=== PATIENT | female | born 1955 | race Caucasian/White ===

== ENCOUNTER 2024-02-23 11:35 | Outpatient (POV) | payer MEDICARE, SELFPAY ==
--- OUTSIDE RECORDS SUMMARY | 2024-02-23 11:46 | XMS_ITS | Data Portability ---
Author Organization [facility] Address [address] [place] [address] Care Team Providers Care Date Night Caregiver Name Role Phone SENTHIL SAAB Primary Care Provider BRAXTON HINOJOSA Referring Provider Assessment Encounter Date Assessment Date Assessment LastModified by Organization Details LastModified Time 04/14/2021 04/14/2021 Brief Pain History: This is a former Dr. Hinojosa patient 65-year-old female new patient referral for chronic low back pain. She reports the pain started on 1969 without cause. Has been slowly progressive over the years. Recently has been under the care of pain management getting treatment with medication management mainly. States that she has been seeing Dr. Hinojosa's group for a number of years getting Percocet and gabapentin. She denies any type of injection therapy for her lumbar spine. States physical therapy previously has not been helpful. She is not a surgical candidate. That office no longer able to prescribe so she has been referred on to our office. Sx: She reports pain across low back with some referred to hips bilaterally. States the pain is a constant aching aggravated with activity including standing, walking, bending, lifting, pushing, pulling. Worse with cold weather and damp weather. Denies any type radicular pain. No numbness or weakness the legs. No bowel or bladder incontinence. Pertinent Imaging: XR LUMBAR SPINE AP AND LATERAL August 2020: No evidence of significant degenerative disc disease fracture or dislocation or malalignment. PROCEDURE: MRI LUMBAR SPINE, WITHOUT CONTRAST, 11/06/2015: L1-2: Negative interspace. L2-3: Mild disc degeneration and desiccation with mild posterior disc bulging eccentric to the left. No central canal stenosis. Right lateral recess and right neural foramina widely patent. There is moderate narrowing of the left lateral recess and minimal narrowing of the left neural foramen. L3-4: Negative interspace. Bilateral facet hypertrophy. L4-5: Mild posterior disc bulging eccentric to the left. Bilateral facet hypertrophy. No central canal stenosis. There is mild narrowing of the right lateral recess. There is moderate to advanced narrowing left lateral recess. Moderate narrowing of the left neural foramen. Right neural foramen is widely patent. L5-S1: Mild posterior disc bulging of doubtful architectural significance. Bilateral facet hypertrophy. OTHER TREATMENTS: Conservative: 6 weeks physical therapy previously [facility] 2019 without relief Surgical: None RISK FACTORS: Smoker: Yes Employed: No Diabetic: Denies Anticoagulated: Denies Injection Hx Denies lumbar injections Medication Hx: Percocet 10/325 mg 1 4 times a day. Gabapentin 600 mg 1 4 times a day Compliance: TAMAR/OARS/INSPE CT was reviewed and is appropriate Preliminary UDS today is as expected I will send this for LCMS confirmation for a baseline since the patient is new to the practice. Based on above screening, co-morbidities, MED, and my clinical judgement: I consider this patient to be moderate risk for abuse/diversion. ORT: 1 PHQ-9: 0 MDM: Reviewed imaging with the patient we discussed treatment options. Imaging shows significant amount facet arthritis. Her pain is all axial. We discussed injection therapy and she is agreeable to this. History and exam are consistent with low back pain from facet arthritis, supported by imaging. Symptoms have not responded to >3 months conservative therapy including but not limited to physical therapy. Symptoms are affecting patient's ability to perform ADLs. I am going to schedule the patient for a bilateral diagnostic lumbar medial nerve branch block L3-5 x2 to be followed by radiofrequency ablation as appropriate. I will take over her Percocet gabapentin at the current dose and frequency. No increase on the Percocet. PLAN: 1. Medications as above. 2. Order placed for lumbar medial branch block L3 to 5x2 to be followed by lumbar radiofrequency ablation as appropriate. Discussed new orders/changes with patient. Patient expressed agreement and full understanding of above plan. All questions answered in full. Follow-up in 30 days. Much of this encounter is an electronic ending machine operator/tra nslation of spoken language to printed text. The electronic translation of spoken language may permit erroneous or at times nonsensical words of phrases to be inadvertently transcribed; Although I have reviewed the note for such errors, some may still exist. [email or web address] Not available 04/14/2021 09:18:54 05/20/2021 05/20/2021 65-year-old female follow-up for chronic low back pain. Since last appointment she reports symptoms are about the same as last time she was in the office. She has been doing well with medications. Medications help keep her functional and active. Denies any side effects or issues on medication. We discussed medial nerve branch block at last appointment and she like to move forward with scheduling. Looks like we have approval for the procedure we just need to get her on the schedule. She reports pain across low back with some referred to hips bilaterally. States the pain is a constant aching aggravated with activity including standing, walking, bending, lifting, pushing, pulling. Worse with cold weather and damp weather. Denies any type radicular pain. No numbness or weakness the legs. No bowel or bladder incontinence. Brief Pain History: This is a former Dr. Hinojosa patient 65-year-old female new patient referral for chronic low back pain. She reports the pain started on 1969 without cause. Has been slowly progressive over the years. Recently has been under the care of pain management getting treatment with medication management mainly. States that she has been seeing Dr. Hinojosa's group for a number of years getting Percocet and gabapentin. She denies any type of injection therapy for her lumbar spine. States physical therapy previously has not been helpful. She is not a surgical candidate. That office no longer able to prescribe so she has been referred on to our office. Pertinent Imaging: XR LUMBAR SPINE AP AND LATERAL August 2020: No evidence of significant degenerative disc disease fracture or dislocation or malalignment. PROCEDURE: MRI LUMBAR SPINE, WITHOUT CONTRAST, 11/06/2015: L1-2: Negative interspace. L2-3: Mild disc degeneration and desiccation with mild posterior disc bulging eccentric to the left. No central canal stenosis. Right lateral recess and right neural foramina widely patent. There is moderate narrowing of the left lateral recess and minimal narrowing of the left neural foramen. L3-4: Negative interspace. Bilateral facet hypertrophy. L4-5: Mild posterior disc bulging eccentric to the left. Bilateral facet hypertrophy. No central canal stenosis. There is mild narrowing of the right lateral recess. There is moderate to advanced narrowing left lateral recess. Moderate narrowing of the left neural foramen. Right neural foramen is widely patent. L5-S1: Mild posterior disc bulging of doubtful architectural significance. Bilateral facet hypertrophy. OTHER TREATMENTS: Conservative: 6 weeks physical therapy previously [facility] 2019 without relief Surgical: None RISK FACTORS: Smoker: Yes Employed: No Diabetic: Denies Anticoagulated: Denies Injection Hx Denies lumbar injections Medication Hx: Percocet 10/325 mg 1 4 times a day. Gabapentin 600 mg 1 4 times a day Compliance: The patient was advised that the purpose of this urine drug screen is to monitor for compliance and to assist in risk stratification. TAMAR/OARS/INSPE CT was reviewed and is appropriate Preliminary UDS today is appropriate. The results of this preliminary screening test were discussed with the patient. I will send this for LCMS confirmation Last UDS confirmation was April 2021 and appropriate Based on the patients urine confirmation (LCMS) results, the patient's overall risk level will remain the same. I would consider the patient to be moderate risk based on these new results. In response to the patient's risk level and urine confirmation I plan to continue the patient's opioid prescription. ORT: 1 PHQ-9: 0 MDM: We will schedule for her lumbar medial branch block today. In the meantime continue medication at the current dose and frequency. PLAN: 1. Medications as above. 2. Order placed for lumbar medial branch block L3 to 5x2 to be followed by lumbar radiofrequency ablation as appropriate. Discussed new orders/changes with patient. Patient expressed agreement and full understanding of above plan. All questions answered in full. Follow-up in 30 days. Much of this encounter is an electronic ending machine operator/tra nslation of spoken language to printed text. The electronic translation of spoken language may permit erroneous or at times nonsensical words of phrases to be inadvertently transcribed; Although I have reviewed the note for such errors, some may still exist. [email or web address] Not available 05/20/2021 14:48:10 Plan of Treatment Reminders Order Date Submit Date Provider Last Modified By Organization Details Last Modified Time Details Appointments None recorded. Lab drug screen, urine 2021 022 [email or web address] [place], [address] [place] [address] [address], [address] [place], [address], 2 09:13:40 unlisted lab - confirm new patient 2021 [facility], [facility], [address] [place] [address], [address], 2 12:01:18 drug screen, urine 2021 [place], [address], [address], [place], [address], 2 14:45:25 unlisted lab - confirm appropriate oxycodone 2021 [email or web address] [facility], [facility], [address] [place] [address], [address], 08:49:39 Referral None recorded. Procedures medial branch block, lumbar (PROC) - bilateral lumbar mnbb L3-5 2021 [email or web address] Not available 22:13:07 Surgeries None recorded. Imaging None recorded. Medication Orders gabapentin 600 mg tablet [address] [id number], [address] [place], [address], 16:18:38 Percocet 10 mg-325 mg tablet [address] [facility] [id number], [address] [place], [address], 2 16:18:38 gabapentin 600 mg tablet 2021 [facility] [id number], [address] [place], [address], 2 14:45:31 Percocet 10 mg-325 mg tablet 2021 022 [facility] [id number], [address] [place], [address], 14:45:34 Patient TargetsNo targets recorded. Patient Instructions Encounter Date Encounter Id Patient Instructions Last Modified By Organization Details Last Modified Time 04/14/2021 [id number] Much of this encounter is an electronic ending machine operator/roman slation of spoken language to printed text. The electronic translation of spoken language may permit erroneous or at times nonsensical words of phrases to be inadvertently transcribed; Although I have reviewed the note for such errors, some may still exist. [email or web address] Not available 04/14/2021 08:51:09 Reason for Referral None Reported. Results Created Date Observation Date Name Description Value Unit Range Abnormal Flag Note LastModifiedBy Organization Detail LastModifiedTime 04/14/1904/14/2021 drug scree n, urine THC: negati ve Not Available [place] [address], [place], [address], 04/14/2021 08:49:41 04/14/19 22 04/14/2021 drug scree n, urine Buprenorphin e: negati ve Not Available [place] [address], [place], [address], 04/14/2021 08:49:41 04/14/19 22 04/14/2021 drug scree n, urine TCA: positi ve Not Available [place] [address], [place], [address], 04/14/2021 08:49:41 04/14/19 22 04/14/2021 drug scree n, urine Barbiturates : negati ve Not Available [place] [address], [place], [address], 04/14/2021 08:49:41 04/14/19 22 04/14/2021 drug scree n, urine Benzodiazepi mary ann: negati ve Not Available [place] [address], [place], [address], 04/14/2021 08:49:41 04/14/19 22 04/14/2021 drug scree n, urine Methadone: negati ve Not Available [place] [address], [place], [address], 04/14/2021 08:49:41 04/14/19 22 04/14/2021 drug scree n, urine Amphetamines : negati ve Not Available [place] [address], [place], [address], 04/14/2021 08:49:41 04/14/19 22 04/14/2021 drug scree n, urine Morphine/Opi ates: negati ve Not Available [place] [address], [place], [address], 04/14/2021 08:49:41 04/14/19 22 04/14/2021 drug scree n, urine Oxycodone: positi ve Not Available [place] [address], [place], [address], 04/14/2021 08:49:41 04/14/19 22 04/14/2021 drug scree n, urine MDMA: negati ve Not Available [place] [address], [place], [address], 04/14/2021 08:49:41 04/14/19 22 04/14/2021 drug scree n, urine Cocaine: negati ve Not Available [place] [address], [place], [address], 04/14/2021 08:49:41 04/14/19 22 04/14/2021 drug scree n, urine Methamphetam ine: negati ve Not Available [place] [address], [place], [address], 04/14/2021 08:49:41 05/21/19 22 05/20/2021 drug scree n, urine THC: negati ve Not Available [place] [address], [place], [address], 05/20/2021 14:06:28 05/21/19 22 05/20/2021 drug scree n, urine Buprenorphin e: negati ve Not Available [place] [address], [place], [address], 05/20/2021 14:06:28 05/21/19 22 05/20/2021 drug scree n, urine TCA: positi ve Not Available [place] [address], [place], [address], 05/20/2021 14:06:28 05/21/19 22 05/20/2021 drug scree n, urine Barbiturates : negati ve Not Available [place] [address], [place], [address], 05/20/2021 14:06:28 05/21/19 22 05/20/2021 drug scree n, urine Benzodiazepi mary ann: negati ve Not Available [place] [address], [place], [address], 05/20/2021 14:06:28 05/21/19 22 05/20/2021 drug scree n, urine Methadone: negati ve Not Available [place] [address], [place], [address], 05/20/2021 14:06:28 05/21/19 22 05/20/2021 drug scree n, urine Amphetamines : negati ve Not Available [place] [address], [place], [address], 05/20/2021 14:06:28 05/21/19 22 05/20/2021 drug scree n, urine Morphine/Opi ates: negati ve Not Available [place] [address], [place], [address], 05/20/2021 14:06:28 05/21/19 22 05/20/2021 drug scree n, urine Oxycodone: positi ve Not Available [place] [address], [place], [address], 05/20/2021 14:06:28 05/21/19 22 05/20/2021 drug scree n, urine MDMA: negati ve Not Available [place] [address], [place], [address], 05/20/2021 14:06:28 05/21/19 22 05/20/2021 drug scree n, urine Cocaine: negati ve Not Available [place] [address], [place], [address], 05/20/2021 14:06:28 05/21/19 22 05/20/2021 drug scree n, urine Methamphetam ine: negati ve Not Available [place] [address], [place], [address], 05/20/2021 14:06:28 03/24/19 22 09/16/2020 XR, lumba r spine No observ ation record ed. BARCODE Not Available 2021 16:51:05 03/24/19 22 09/16/2020 XR, thora cic spine No observ ation record ed. BARCODE Not Available 2021 16:51:05 Result Notes None recorded. Problems Name Problem SNOMED Code Status Onset Date Resolution Date Notes Provider Name and Address Organization Details Recorded Time Lumbar spondylosis 519315992 Active 2021 Braxton Abel MD [address] [place] [address], [address] , [facility] 2 09:05:31 Degeneration of cervical intervertebra l disc 00531724 Active 2021 Braxton Abel MD [address] [place] [address], [address] , [facility] 2 09:06:27 Problem Notes None recorded. Procedures Surgical History Date Name Laterality Status Provider Name and Address Organization Details Recorded Time Orthopedic Surgery completed Estefanía Dailey [facility] 04/14/2021 08:56:35 Imaging Results Imaging Date Name Status LastModified by Organiz ation Details LastModified Time 09/16/2020 XR, lumbar spine completed BARCODE Information not available 03/24/2021 16:51:05 09/16/2020 XR, thoracic spine completed BARCODE Information not available 03/24/2021 16:51:05 Procedure Notes None recorded. Medical Equipment None Reported. Allergies Allergen ID Allergen Name Allergen Category Reaction Reaction Severity Criticality Documentation Date Start Date Code Code System Note Provider Name and Address Organization Details Recorded Time 579261 codeine medicatio n Not available Not available Not available 04/14/2021 2670 RxNorm Estefanía Dailey [facility] 2 08:51:50 858481 morphine medicatio n Not available Not available Not available 04/14/2021 7052 RxNorm Estefanía Dailey [facility] 2 08:51:56 193906 hydrocodo ne Not available Not available Not available Not available 04/14/2021 5489 RxNorm Estefanía Dailey [facility] 2 08:52:04 Medications Name Sig Start Date Stop Date Status Note LastModified by Organization Details LastModified Time atorvastatin 40 mg tablet active Not Available Not Available Not Available bupropion HCl SR 150 mg tablet,12 hr sustained-rel ease active Not Available Not Available Not Available gabapentin 600 mg tablet Take 1 tablet 4 times a day by oral route. active Not Available Not Available No t Available bisoprolol 5 mg-hydrochlor othiazide 6.25 mg tablet active Not Available Not Available Not Available amlodipine 2.5 mg tablet active Not Available Not Availabl e Not Available clopidogrel 75 mg tablet 04/14 completed Not Available Not Available Not Available amlodipine 5 mg tablet 04/14 completed Not Available Not Available Not Available amoxicillin 875 mg tablet 04/14 completed Not Available Not Available Not Available oxycodone-simona taminophen 10 mg-325 mg tablet Take 1 tablet 4 times a day by oral route. active Not Available Not Available No t Available aspirin 81 mg chewable tablet 04/14 completed Not Available Not Available Not Available hydrochloroth iazide 25 mg tablet active Not Available Not Available Not Available ergocalcifero l (vitamin D2) 1,250 mcg (50,000 unit) capsule active Not Available Not Available Not Available loratadine 10 mg tablet active Not Available Not Available No t Available Chantix 1 mg tablet 04/14 completed Not Available Not Available Not Available ProAir HFA 90 mcg/actuation aerosol inhaler active Not Available Not Available Not Available Chantix Starting Month Box 0.5 mg (11)-1 mg (42) tablets in dose pack 04/14 completed Not Available Not Available Not Available Anoro Ellipta 62.5 mcg-25 mcg/actuation powder for inhalation active Not Available Not Available N ot Available Vitals Date Recorded Body height Body mass index (BMI) Body weight Provider Name and Address Organization Details Last Updated DateTime 04/14/2021 162.56 cm 25.1 kg/m2 96486.49 g Estefanía [facility] 04/14/2021 08:51:28 Date Recorded Body height Provider Name an d Address Organization Details Last Updated DateTime 05/20/2021 162.56 cm Estefanía Dailey [facility] 05/20/2021 14:23:04 Social History Question Answer Notes LastModified by Organizat ion Details LastModified Time Tobacco Smoking Status Current Every Day Smoker Estefanía osuna [facility] 04/14/2021 08:55:58 What Is Your Level Of Alcohol Consumption? Occasional Information not available 04/14/2021 How Many Times Per Week Do You Consume Alcohol? 1-2 Times Per Week Information not available 04/14/2021 In The 14 Days Before Symptom Onset, Have You Had Close Contact With A Laboratory-confir med COVID-19 While That Case Was Ill? No Information not available 04/14/2021 In The 14 Days Before Symptom Onset, Have You Had Close Contact With A Person Who Is Under Investigation For COVID-19 While That Person Was Ill? No Information not available 04/14/2021 What Type Of Diet Are You Following? REGULAR Information not available 04/14/2021 What Is The Highest Grade Or Level Of School You Have Completed Or The Highest Degree You Have Received? GR17676-3 Information not available 04/14/2021 How Many Times Per Week Do You Exercise? 1-2 Times Per Week Information not available 04/14/2021 What Is Your Relationship Status? Information not available 04/14/2021 How Much Tobacco Do You Smoke? 2 PPD Information not available 04/14/2021 Do You Use Any Illicit Or Recreational Drugs? No Information not available 04/14/2021 How Many Years Have You Smoked Tobacco? 50 Information not available 04/14/2021 Sex: Unknown Functional Status Question Answer Note LastModified by Organization D etails LastModified Time Are you able to walk? YESWOREST Information not available 04/14/2021 What is your exercise level? Moderate Information not available 04/14/2021 Mental Status None recorded. Family History Relationship Description Onset Age of this Age Resolved Age Notes LastModified by Organization Details LastModified Time Father No current problems or disability [email or web address] Not available 04/14 08:54:40 Mother No current problems or disability [email or web address] Not available 04/14 08:54:40 Medical History Condition Response Bipolar Disease N Coronary Artery Disease N Gout N Seizure Disorder N Thyroid Disease N Atrial Fibrillation N Hernia N Head Trauma/Injury N COPD N Depression N Anxiety Disorder N Acid Reflux (GERD) N Cancer N Skin Disorder N Stroke N High Cholesterol Y Liver Disease N Rheumatoid Arthritis N Fibromyalgia N Headaches N Autoimmune Disease N Kidney Disease N Osteoarthritis N Neurosurgery N DVT N Peptic Ulcer Disease N Anemia N Heart Attack (SD) N Diabetes N Cardiomyopathy N Bleeding Disorder N CHF N AIDS/HIV N Inflammatory Bowel Disease N Dementia N Asthma Y Substance Abuse N Sleep Apnea N Hepatitis N Heart Disease N Pulmonary Embolism N Chronic Low Back Pain Y Hypertension Y Osteoporosis N Gynecological HistoryNo gynecological history recorded. Obstetrics History GPAL:G 0 P 0 0 0 0 Past Encounters Encounter ID Performer Location Encounter Start Date Encounter Closed Date Diagnosis/Indication Diagnosis SNOMED-CT Code Diagnosis ICD10 Code [id number] Braxton Abel MD [place] [address] [place] [address] 04/14/2021 08:40:19 04/14/2021 09:15:06 Long-term drug therapy 751796357 Z79.899 Lumbar spondylosis 48102 0009 M47.816 Degenerati on of cervical intervertebral disc 97889055 M50.30 [id number] Braxton Abel MD [place] [address] [address] 05/20/2021 14:05:06 05/20/2021 14:46:10 Long-term drug therapy 711447887 Z79.899 Lumbar spondylosis 17173 0009 M47.816 Degenerati on of cervical intervertebral disc 88118855 M50.30 Health Concerns Section Related Observation LastModified by Organization Detai ls LastModified Time None Recorded Concern Status LastModified by Organization Details LastModified Time None Recorded Advance Directives Directive None Recorded Payers Encounter Date Sequence Insurance Name Policy Number Policy [employer] Covered Member ID [place]rickson Member ID Guarantor Name 04/14/2021 1 [facility] (MEDICAID REPLACEMENT - HMO) Vickie Riddle [id number] Vickie Riddle 05/20/2021 1 [facility] (MEDICAID REPLACEMENT - HMO) Vickie Riddle [id number] Vickie Riddle Notes Date Note Type Note Provider Name and Address Organization Details Recorded Time 04/14/2021 text/html Low back painReported bypatient.Onset:da te of onset: (1967) Location:bilateral paraspinal (L>R); pain is not radiating Context:overuse Quality:aching; burning Severity:current pain level: 7/10; average pain level: 7/10; worst pain level: 10/10 Alleviating Factors:lying down; ice Aggravating Factors:walking; lifting; carrying; twisting; pushing/pulling; cold weather; damp weather Timing:varies throughout the day Associated Symptoms:no numbness; no tingling; no pain radiating down lower extremities; no swelling; no popping/clicking; no bowel incontinence; no urinary retention; no urinary incontinence; no perineal paresthesia/anesth esia Prior Imaging:x-ray (08/2020) Previous Lumbar Surgery:none Previous Injections:none Previous physical therapy:Facility: ([facility]); currently in PT:; completed all recommended PT visits; more than 6weeks of PT completed; dates:; response to therapy: no improvement in pain/symptoms Daily Activities:Living independently.; Able to bathe/groom without assistance.;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 Medications History:Muscle relaxants: (FLEXERIL-NOT HELPFUL); Neuropathics: (GABAPENTIN-HELPFU L); Opioid pain medications: (PERCOCET-HELPFUL HYDROCODONE-ALLERG IC) Prior Pain Management:yes: () Braxton Abel MD [address] [place] [address], [phone] 04/14/2021 09:20:02 05/20/2021 text/html Follow-up (meds & injections)Reporte d bypatient.Improvem ent:Pain is the same as compared to last visit. Pain Scores:Average pain- 5/10; Current pain- 7/10; Worst pain- 10/10 Current Analgesics:Opioids - oxycodone; Other adjunct medications- gabapentin; Reported pain relief- 90% for 8 hours; last dose taken at 130pm Adverse Reactions:No nausea.; No vomiting.; No constipation.; No itching.; No sedation.; No respiratory depression.; No sexual dysfunction. Activities of Daily Living (ADL):Living independently.; Able to bathe/groom without assistance.; Able to complete funeral service practitioner/embalmer.; Walking without assistance.; Working.; Exercising.Low back painReported bypatient.Onset:da te of onset: (1969) Location:bilateral paraspinal (L>R); pain is not radiating Context:overuse Quality:aching; burning Severity:current pain level: 7/10; average pain level: 7/10; worst pain level: 10/10 Alleviating Factors:lying down; ice Aggravating Factors:walking; lifting; carrying; twisting; pushing/pulling; cold weather; damp weather Timing:varies throughout the day Associated Symptoms:no numbness; no tingling; no pain radiating down lower extremities; no swelling; no popping/clicking; no bowel incontinence; no urinary retention; no urinary incontinence; no perineal paresthesia/anesth esia Prior Imaging:x-ray (08/2020) Previous Lumbar Surgery:none Previous Injections:none Previous physical therapy:Facility: ([facility]); currently in PT:; completed all recommended PT visits; more than 6weeks of PT completed; dates:; response to therapy: no improvement in pain/symptoms Daily Activities:Living independently.; Able to bathe/groom without assistance.;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 Medications History:Muscle relaxants: (FLEXERIL-NOT HELPFUL); Neuropathics: (GABAPENTIN-HELPFU L); Opioid pain medications: (PERCOCET-HELPFUL HYDROCODONE-ALLERG IC) Prior Pain Management:yes: () Braxton Abel MD [address] [place] [address], [phone], [facility] 05/20/2021 14:48:45 OBGyn Episode No OBEpisode recorded.
--- OUTSIDE RECORDS SUMMARY | 2024-02-23 11:46 | XMS_ITS | Data Portability ---
Author Organization [place] - [facility] [place] & SESAR Babin ADMIN Address [address] [place] [phone] Assessment Encounter Date Assessment Date Assessment LastModified by Organization Details LastModified Time 11/12/2022 11/12/2022 This is a very pleasant patient, referred by Dr. Bah, with complaints of Neck,back hip and hand pain for 20+ years. She is been oxycodone /APAP 10/325 q.6 hours and gabapentin 600 mg q.6 hours As prescribed by Dr. Bah. She has had prior SI injection with short-term relief. patient was discharged from Dr. Hardin's office secondary to UDS discrepancy. Based on history and physical exam, the patient's pain is multifactorial in nature. I think her pain is secondary to sacroiliitis, lumbar and cervical pathology as well as myofascial pain. We discuss further treatment including repeat SI injection as she has had in the past and getting a new imaging for further evaluation to help determine further treatment. I had a detailed discussion with the patient regarding treatment modalities and the respective risks/benefits. I educated the patient on the dangers/risks of long-term oral opioids, particularly with increasing age, these risks include respiratory depression, not excluding . I informed the patient that the goal of [facility] will be to incorporate a multi-modal approach to pain management, which may consist of conservative, pharmacologic, and interventional approaches, ultimately decreasing pain and increasing function with focus on both safety and efficacy. I informed the patient that I will prescribe oral opioids, but at a lower dose, and the intention will be to slowly taper once pain is better controlled. The patient verbalized understanding. We discussed the signficant impact smoking can have on a patient's health and co-morbidities . We discussed all the well known increased risks including risk of ND, CVA, vascular disease various cancers and early . There is literature to support that smoking worsens and intensifies chronic pain. I encouraged the patient to aggressively work on smoking cessation. At this time, patient is not interested in pursuing any interventions and is not interested in tapering her medications. She will return to see us if she changes her mind after considering her options. gloria Not available 11/13/2022 13:42:41 Plan of Treatment Reminders Order Date Submit Date Provider Last Modified By Organization Details Last Modified Time Details Appointments None record ed. Lab None record ed. Referral None record ed. Procedures None record ed. Surgeries None record ed. Imaging None record ed. Medication Orders None record ed. Patient TargetsNo targets recorded. Patient InstructionsNo instructions recorded. Reason for Referral None Reported. Medical Equipment None Reported. Allergies No known drug allergies Medications Name Sig Start Date Stop Date Status Note LastModified by Organization Details LastModified Time atorvastatin 40 mg tablet 11/12 completed Not Available Not Available Not Available silver sulfadiazine 1 % topical cream 11/12 completed Not Available Not Available Not Available prednisone 10 mg tablet 11/12 completed Not Available Not Available Not Available gabapentin 600 mg tablet active Not Available Not Available No t Available ipratropium 0.5 mg-albuterol 3 mg (2.5 mg base)/3 mL nebulization soln 11/12 completed Not Available Not Available Not Available loperamide 2 mg capsule 11/12 completed Not Available Not Available Not Available cetirizine 10 mg tablet 11/12 completed Not Available Not Available Not Available azithromycin 250 mg tablet 11/12 completed Not Available Not Available Not Available prednisone 20 mg tablet 11/12 completed Not Available Not Available Not Available bisoprolol 5 mg-hydrochloroth iazide 6.25 mg tablet 11/12 completed Not Available Not Available Not Available oxycodone-acetam inophen 10 mg-325 mg tablet active Not Available Not Avail able Not Available benzonatate 100 mg capsule 11/12 completed Not Available Not Available Not Available cephalexin 500 mg capsule 11/12 completed Not Available Not Available Not Available montelukast 10 mg tablet 11/12 completed Not Available Not Available Not Available hydroxyzine HCl 25 mg tablet 11/12 completed Not Available Not Available Not Available furosemide 20 mg tablet 11/12 completed Not Available Not Available Not Available levofloxacin 500 mg tablet 11/12 completed Not Available Not Available Not Available ondansetron 4 mg disintegrating tablet 11/12 completed Not Available Not Available Not Available fluticasone propionate 50 mcg/actuation nasal spray,suspension 11/12 completed Not Available Not Available Not Available Flovent HFA 220 mcg/actuation aerosol inhaler 11/12 completed Not Available Not Available Not Available Asmanex Twisthaler 220 mcg/actuation(30 doses) breath activated inhalr 11/12 completed Not Available Not Available Not Available ProAir HFA 90 mcg/actuation aerosol inhaler 11/12 completed Not Available Not Available Not Available Anoro Ellipta 62.5 mcg-25 mcg/actuation powder for inhalation 11/12 completed Not Available Not Available Not Available Paxlovid 300 mg (150 mg x 2)-100 mg tablets in a dose pack 11/12 completed Not Available Not Available Not Available Vitals Date Recorded Body weight Body mass index (BMI) Body height Body temperature Oxygen saturation Oxygen saturation in Arterial blood by Pulse oximetry Heart rate Systolic blood pressure Diastolic blood pressure Provider Name and Address Organization Details Last Updated DateTime 3 80968.7 1 g 24.5 kg/m2 162.56 cm 97.1 [degF] 93 % 93 % 82 /min 179 mm[Hg] 84 mm[Hg] Winnie Ventura [facility] [place] 09:30:10 Social History Question Answer Notes LastModified by Organizat ion Details LastModified Time Tobacco Smoking Status Current Every Day Smoker Winnie Ventura [facility], [facility] & [place] 11/12/2022 09:37:00 What Is Your Current Pack Years? 30ormorepacky ears [id number] Information not available 11/12/2022 How Much Tobacco Do You Smoke? 0.5 PPD Information not available 11/12/2022 Sex: Unknown Functional Status None recorded. Mental Status None recorded. Family History Nothing Reported. Medical History Condition Response Arthritis Y Hypertension Y High Cholesterol Y Gynecological HistoryNo gynecological history recorded. Obstetrics History GPAL:G 0 P 0 0 0 0 Past Encounters Encounter ID Performer Location Encounter Start Date Encounter Closed Date Diagnosis/Indication Diagnosis SNOMED-CT Code Diagnosis ICD10 Code [id number] Javad Vang MD [facility] [address],[facility] e [address] [place] [phone] 11/12/2022 09:11:40 11/12/2022 11:39:03 Pain in cervical spine 276304886 M54.2 Pain in lumbar spine 267 003191 M54.51 Pain in le ft sacroiliac joint 5714369345 3184775 M53.3 Nicotine dependence 5629 4008 F17.200 Health Concerns Section Related Observation LastModified by Organization Detai ls LastModified Time None Recorded Concern Status LastModified by Organization Details LastModified Time None Recorded Advance Directives Directive None Recorded Payers Encounter Date Sequence Insurance Name Policy Number Policy Hendrickson Covered Member ID Hendrickson Member ID Guarantor Name 11/12/2022 1 [facility] (MEDICAID REPLACEMENT - HMO) Vickie Riddle [id number] Vickie Riddle Notes Date Note Type Note Provider Name and Address Organization Details Recorded Time 11/12/2022 text/html This is a very pleasant patient, referred by Dr. Bah, here with multiple joint pains including her neck her back, hands, hips. She denies any trauma or injury. She reports pain for 20+ years. complains of worsening pain with standing and walking, better with sitting. It is worse with leaning forward. She reports radiating pain down bilateral lower extremities. She complains of pain with a in the hands that is aching and throbbing with any use. She has had no prior surgery. She has had prior left SI injections with short term relief. She has been taking oxycodone /acetaminophen 10/325 q.6 hours and gabapentin 600 q.6 hours daily. She was discharged from Dr. Bah practice due to urine descrepency. Pain today is 9/10. Javad Vang MD [facility], [place], [phone], [facility] & [place] 11/16/2022 09:23:21 OBGyn Episode No OBEpisode recorded.
--- NOTE | 2024-02-23 13:23 | EXP.PAIN.OV ---
HPI Data of Consult Patient: new to practice Consult date: 02/23/24 Requesting Physician: Pita Kate APRN Primary Care Provider: Masoud Cortez Consult Narrative Reason for consult: Neck pain, mid back pain, low back pain, bilateral leg pain History of present illness: Ms. day is a 68 year old female who presents today as a new patient. She is a referral from [facility]. Today she rates her pain a 9 out of 10. Patient states she has chronic pain from her neck down to her feet. Patient states this is been going on for longer than 10 years and progressively worsened. Patient does state that she seen pain management for the past 10 years however the doctors either retired or were no longer seeing patients. Patient states that she would get injections at these offices however they also did oxycodone and gabapentin and that does always seem to help. Patient denies any recent imaging and states that it has probably been at least 8 to 10 years and that those x-ray imaging would most likely be at [place]. Patient does state that she is taken off about a year from pain management. Patient does not have any scheduled medications on her Juan. CC: Pita Kate APRN [facility] Disclaimer: The information contained in this section may have been updated after the patient was seen, as this information can be updated by other users. Social History Smoking Status: Unknown if ever smoked alcohol intake: never current occupational status: other Travel in the last 8 weeks: None Review of Systems Review of Systems Review of systems:: pertinent systems reviewed and negative unless documented below Review of systems (narrative): Review of Systems: General: No recent weight changes, no fever, no sleep disturbances Respiratory: No cough, no shortness of air, no recurring pulmonary infections Cardiovascular/peripheral vascular: No chest pain, no palpitations, no edema, no shortness of breath Gastrointestinal: No new onset incontinence, normal bowel movements reported Genitourinary: No new onset incontinence Musculoskeletal: Neck pain, mid back pain, low back pain, leg pain Psychiatric: [Normal mood/affect] Neurological: [Denies weakness in extremities], [denies balance issues] Meds Home Medications and Allergies New Prescriptions to Start Prescriptions: Objective Narrative: Physical Exam: General: Alert and oriented x3, no acute distress, pleasant and cooperative Lungs: Respirations even and unlabored, symmetrical chest expansion Eyes: PERRL Musculoskeletal: Was not assessed Neurological: Speech clear, no gross sensory deficit Assessment and Plan *Assessment and plan (1) Neck pain: Status: Acute Category: Medical Code(s): M54.2 - Cervicalgia (2) Mid back pain: Status: Acute Category: Medical Code(s): M54.9 - Dorsalgia, unspecified (3) Low back pain: Status: Acute Category: Medical Code(s): M54.50 - Low back pain, unspecified (4) Lumbar radiculopathy: Status: Acute Category: Medical Code(s): M54.16 - Radiculopathy, lumbar region Plan I did discuss at length with the patient regarding our office and how we are interventional pain management and that we do rely on injection therapy. Patient was counseled that we would not be able to continue the gabapentin and oxycodone that she was previously prescribed. Patient stated that there was no sense in her being here at our office if we were not going to give her the oral medications. I did also discuss with the patient due to the longstanding history of no updated imaging that I would want to start there with x-rays however she declined this again to the fact that if we were not doing medications there was no sense in proceeding forward. Patient was counseled that if she decides that she would like to try additional injections or other procedures that she is more than welcome to contact our office for an additional follow-up. Patient acknowledges understanding and agrees with plan of care. Patient has been instructed to contact the clinic with any concerns before the next appointment. Dr. Chaudhry has reviewed this note and agrees with this plan of care. This note was dictated using voice recognition software and make contain errors or omissions. All injections are used with Lidocaine or Bupivacaine and Depo Medrol.
[2024-02-23 14:45] VITALS: BP 125/73; PULSE 79; RESP 18; O2SAT 91; BMI 24.3
== END 2024-02-23 23:59 | disposition home or self-care (01) ==
LOC: SC.PAIN 11:44
PROVIDERS: PCP Pediatrics; Visit Provider Nurse Practitioner Family
DX: M54.2 Cervicalgia (principal); M54.9 Dorsalgia, unspecified; M54.50 Low back pain, unspecified; M54.16 Radiculopathy, lumbar region
CPT/HCPCS: 99202; G0463